=== PATIENT | male | born 1995 | race Caucasian/White ===

== ENCOUNTER 2018-10-05 14:28 | Emergency (ER) | payer MEDICAID ==
[~2018-10-05] VITALS: Ht 167.6 cm; Wt 67.1 kg
[2018-10-05 14:30] VITALS: BP_SYST 125
[2018-10-05] MEDS ORDERED: LIDOCAINE/EPI 2% 1:100000 20 ML VIAL INJ ONE (14:45)
[2018-10-05] MEDS ORDERED: BACITRACIN 1 GM OINT TP ONE (14:45)
[2018-10-05] MEDS ORDERED: IBUPROFEN 600 MG TABLET PO ONE (14:45)
[2018-10-05] MEDS ORDERED: DIPH-TET-PERTUS Vaccine 0.5 ML VIAL (ADACEL) I.M. ONE (15:00)
[2018-10-05 16:50] VITALS: BP_SYST 126
== END 2018-10-05 16:50 | disposition home or self-care (01) ==
LOC: SED 14:28
DX: S51.812A Laceration without foreign body of left forearm, initial encounter (principal); R03.0 Elevated blood-pressure reading, without diagnosis of hypertension; W45.8XXA Other foreign body or object entering through skin, initial encounter; Y93.89 Activity, other specified; Y92.89 Other specified places as the place of occurrence of the external cause; Y99.8 Other external cause status
CPT/HCPCS: 90715; 99283

== ENCOUNTER 2018-10-07 14:23 | Emergency (ER) | payer MEDICAID ==
[~2018-10-07] VITALS: Ht 167.6 cm; Wt 67.1 kg
[2018-10-07 14:23] VITALS: BP_SYST 137
--- NOTE | 2018-10-07 14:23 | NUR ---
BROUGHT BACK TO BED #8 AND TRIAGED. REPORT GIVEN TO REZA
--- NOTE | 2018-10-07 14:40 | NUR ---
PATIENT CAME IN FOR WOUND CHECK. 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 PATIENT COMPLAINING OF PAIN 1/10 PAIN. PATIENT HAS 3 SUTURES TO LEFT FA. SITE IS DRY INTACT WITH NO SIGNS OF INFECTION. PATIENT DENIES SOB, NAUSEA, AND VOMITING. PATIENT ALERT AND ORIENTED X4.
--- NOTE | 2018-10-07 14:52 | NUR ---
ER Dr. HAYES at bedside examining patient.
[2018-10-07] MEDS ORDERED: NEOMY SULF/BACITRAC ZN/POLY 28 GM OINT..GM. TP ONE (15:00)
[2018-10-07 15:51] VITALS: BP_SYST 137
--- NOTE | 2018-10-07 15:51 | NUR ---
Patient given written and verbal discharge instructions and verbalizes understanding. ER MD discussed with patient the results and treatment provided. Patient in stable condition. ID arm band removed. Rx of NEOSPORIN given. Patient educated on pain management and to follow up with PMD. Pain Scale 0/10. Opportunity for questions provided and answered. Medication side effect fact sheet provided.
== END 2018-10-07 15:51 | disposition home or self-care (01) ==
LOC: SED 14:23
DX: S51.812D Laceration without foreign body of left forearm, subsequent encounter (principal); X78.8XXD Intentional self-harm by other sharp object, subsequent encounter
CPT/HCPCS: 99282